=== PATIENT | female | born 1990 | race Caucasian/White ===

== ENCOUNTER 2017-06-17 11:32 | Emergency (ER) | payer BC ==
[2017-06-17 11:38] VITALS: BP 110/61
--- NOTE | 2017-06-17 12:52 | UC ---
Throat Pain/Nasal Jeffy HPI - HPI Summary HPI Summary: 26 Y/O female presents for complaint of sinus pain, throat pain, nasal congestion and ear congestion that has lasted for approximately 3 weeks. Denies fever, chills, dyspnea, nausea or vomiting. Has been treating with OTC decongestants with some relief. Family history significant coronary artery disease. Medications and medical history reviewed at this visit. - History of Current Complaint Chief Complaint: UCRespiratory Stated Complaint: SINUS COMPLAINT Time Seen by Provider: 06/17/17 12:09 Hx Obtained From: Patient Hx Last Menstrual Period: 2 WEEKS AGO Onset/Duration: Gradual Onset, Lasting Weeks Severity: Moderate Pain Intensity: 0 Pain Scale Used: 0-10 Numeric Cough: Nonproductive Associated Signs & Symptoms: Positive: Sinus Discomfort - Epiglottits Risk Factors Epiglottis Risk Factors: Negative - Allergies/Home Medications Allergies/Adverse Reactions: Allergies Allergy/AdvReac Type Severity Reaction Status Date / Time Tree Nuts Allergy Severe Nausea Verified 06/17/17 11:38 All nuts Allergy Severe Nausea Uncoded 06/17/17 11:38 Home Medications: Home Medications Dextromethorphan-Phenylephrine [[employer] Dayquil Cold & Flu 10-5-325 mg/15Ml] 1 liq PO PRN 06/17/17 [History] PMH/Surg Hx/FS Hx/Imm Hx Previously Healthy: Yes - Surgical History Surgical History: None - Social History Alcohol Use: Occasionally Alcohol Amount: 6 DRINKS/WEEK Substance Use Type: None Smoking Status (MU): Former Smoker Type: Cigarettes Amount Used/How Often: 3-4 daily Review of Systems Constitutional: Negative Skin: Negative Eyes: Eye Redness ENT: Sore Throat, Sinus Congestion, Sinus Pain/Tenderness Respiratory: Cough - Dry Cardiovascular: Negative Gastrointestinal: Negative Genitourinary: Negative Motor: Negative Neurovascular: Negative Musculoskeletal: Negative Neurological: Negative Psychological: Negative Is Patient Immunocompromised?: No All Other Systems Reviewed And Are Negative: Yes Physical Exam Triage Information Reviewed: Yes Appearance: Well-Appearing Vital Signs: Initial Vital Signs Temp 98 F 06/17/17 11:35 Pulse 74 06/17/17 11:35 Resp 16 06/17/17 11:35 BP 110/61 06/17/17 11:35 Pulse Ox 98 06/17/17 11:35 Eye Exam: Normal ENT: Positive: Pharyngeal erythema, Nasal congestion, TMs normal, Sinus tenderness Neck exam: Normal Neck: Positive: Supple, Nontender, No Lymphadenopathy Respiratory Exam: Normal Respiratory: Positive: Lungs clear, Normal breath sounds, No respiratory distress Cardiovascular Exam: Normal Cardiovascular: Positive: RRR Abdominal Exam: Normal Musculoskeletal Exam: Normal Musculoskeletal: Positive: Strength Intact Neurological Exam: Normal Neurological: Positive: Alert Psychological Exam: Normal Skin Exam: Normal Throat Pain/Nasal Course/Dx - Differential Dx/Diagnosis Differential Diagnosis/HQI/PQRI: Pharyngitis, Sinusitis, URI Provider Diagnoses: Sinus infection Discharge - Discharge Plan Condition: Stable Disposition: HOME Prescriptions: Amoxicillin PO (*) [Amoxicillin 500 MG CAP*] 500 mg PO TID #28 cap Patient Education Materials: Sinusitis (ED) Referrals: No Primary Care Phys,NOPCP [Primary Care Provider] - Additional Instructions: Please take medications as directed. You may return to Urgent care as needed if symptoms do not improve over the next 2 to 3 days. Follow up with your primary care provided as needed.
== END 2017-06-17 13:00 | disposition home or self-care (01) ==
LOC: UCEAST 11:32
DX: J32.9 Chronic sinusitis, unspecified (principal); Z72.89 Other problems related to lifestyle; Z87.891 Personal history of nicotine dependence
CPT/HCPCS: 99202; G0463